=== PATIENT | male | born 1970 | race Two or more races ===

== ENCOUNTER 2016-11-07 07:30 | Observation (INO) | payer SELFPAY ==
[~2016-11-07] VITALS: Ht 175.3 cm; Wt 72.4 kg
[2016-11-07 07:31] VITALS: BP 160/103
[2016-11-07 07:52] LABS: HEMOGLOBIN 14.5 g/dL (14.1-18.0); LYMPH # 1.4 K/mm3 (0.7-4.5)
--- NOTE | 2016-11-07 08:42 | Emergency Room Report ---
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 N Clinical Suspician of Infection? N Mental Status: 1 - Regular (Normal Baseline) Sepsis Risk:Low Sepsis Risk Have you (or family members/close friends) recently traveled outside the [place]? N If Yes, where/when: Have you had exposure to infectious disease within the past month? N TB? Other? Specify: This is a spansih speaking patient who was interviewed by the nurse who was told that his chest hurt. I spoke to him through a computer processing scheduler on the emirati line that he has not been feeling well since yesterday. He was seen in the [facility] yesterday and was told he has anxiety and was given BP and anxiety medicine. 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 He woke today with an episode of palpitation that lasted for 10 minutes and felt weak. He denied chest pain to the computer processing scheduler, shortness of air, nasuea, vomiting or diarrhea, but he states that he can not belch. He took his medications this morning. 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 Yes Immunization Hx Ped.Immunizations UTD No DT/Tetanus Unknown Surgical Hx Previous Surgery?N denies any surgery Social History Smoking Hx Smoker: Unknown if Ever Smoked Tobacco: No Alcohol Alcohol: No Review of Systems All Other Systems Reviewed and Negative Constitutional see HPI, weakness Eyes no symptoms reported ENT no symptoms reported. Respiratory no symptoms reported Cardiovascular see HPI, chest pain, palpitations Gastrointestinal no symptoms reported Genitourinary no symptoms reported. Musculoskeletal no symptoms reported Skin no symptoms reported Psychiatric/Neurological no symptoms reported, anxiety Physical Exam Vital Signs Vital Signs Date Time Temp Pulse Resp B/P Pulse O2 O2 Flow FiO2 Ox Delivery Rate 11/07 0824 97.6 64 16 166/99 98 11/07 0731 97.6 64 16 160/103 98 - WBC >12,000 or <4,000 or 10% bands? 2 or more SIRS Criteria Met? B/P:166/99 MAP:122 Creatinine >2.0? UA output<0.5ml/kg/hr for 2 hrs? Platelet count >100,000? Lactate >2.0mmol/1? INR >1.2 or PTT > than 60 sec? Evidence of Organ Dysfunction? Provider documented clinical suspician of infection? N Sepsis Criteria Count: 0 Sepsis Risk: Low Sepsis Risk General Appearance normal appearance, WD/WN Eye Exam - bilateral eye normal exam, bilateral eye PERRL, bilateral eye EOMI Ear, Nose, Throat hearing grossly normal, normal ENT inspection Neck normal inspection, non-tender, supple, full range of motion Respiratory Status Yes: trachea midline, chest symmetrical, non tender chest. No: respiratory distress. Lung Sounds bilateral: normal breath sounds, lungs clear. Cardiovascular normal exam, regular rate/rhythm, no peripheral edema, no gallop, no JVD, no murmur, no rub, normal peripheral pulses Peripheral Pulses Pulses normal Yes Gastrointestinal normal bowel sounds, normal exam, non tender, soft, no organomegaly Back normal inspection, no CVA tenderness, no vertebral tenderness Extremities non-tender, normal range of motion, normal inspection Neurologic alert, infection control specialist II-XII nml as tested, normal exam, oriented x 3 Reflexes Reflexes normal Yes Skin intact, normal color, warm/dry Medical Decision Making LABS/Meds/Orders Pt receiving controlled substance in ED? No Results/Orders Laboratory Tests 11/07/16 0825: ABG pH 7.42, ABG pCO2 (Temp Corrct 35.1, ABG pO2 (Temp Correct 121.3 H, ABG HCO3 22.1, ABG Total CO2 23.1, ABG O2 Sat (Calculated) 98.5, ABG Base Excess - 2.5 L, Blood Gas Comments LEFT RADIAL 11/07/16 0737: B-Natriuretic Peptide 36, TSH 1.46 11/07/16 0737: Sodium 137, Potassium 3.1 L, Chloride 104, Carbon Dioxide 26, BUN 15, Creatinine 1.1, Estimated Creat Clear 90, Estimated GFR (MDRD) 71, Glucose 193 H, Calcium 8.1 L, Total Bilirubin 0.8, AST 11 L, ALT 19, Alkaline Phosphatase 81, Creatine Kinase 104, CK-MB (CK-2) Rel Index 1.3, CK and CKMB Interp 1.3, Troponin I 0.05, Total Protein 7.7, Albumin 3.9, Globulin 3.8 H, Albumin/ Globulin Ratio 1.0 L, WBC 5.6, RBC 5.13, Hgb 14.5, Hct 44.8, MCV 87.4, RDW 12.8 , Plt Count 220, MPV 9.1, Gran % 66.5, Gran # 3.7, Lymphocytes % 25.0, Monocytes % 5.3, Eosinophils % 2.9, Basophils % 0.3, Lymphocytes # 1.4, Monocytes # 0.3, Eosinophils # 0.2, Basophils # 0.0, PUBS MCHC 32.4, MCH 28.3 Current Medication Orders Sig/Mendez Start time Last Medication Dose Route Stop Time Status Admin Aspirin 324 MG ONCE ONE 11/07 0800 DC 11/07 PO 11/07 0801 0753 Aspirin 0 .STK-MED ONE 11/07 0748 DC .ROUTE Sodium Chloride 10 ML PRN PRN 11/07 0745 AC IV 11/08 0745 Sodium Chloride 1,000 ML .STK-MED ONE 11/07 0736 DC IV Orders Procedure Date/time Status Decision to admit 11/07 0855 Active ARTERIAL BLOOD GAS REQUEST 11/07 08 Active THYROID STIMULATING HORMONE 11/07 08 Complete BRAIN NATRIURETIC PEPTIDE 11/07 0812 Complete 12 LEAD EKG-PERRY (INITIAL) 11/07 0745 Active ELECTROCARDIOGRAM REQUEST 11/07 07 Active IV SALINE LOCK 11/07 07 Active CBC WITH AUTO DIFF 11/07 07 Complete CARDIAC ENZYMES 11/07 07 Complete CHEM 12 PROFILE 11/07 0745 Complete CM/EKG CM/EKG EKG rate, NSR, rhythm, no evid. of ischemic chgs, no ectopy, no acute findings XRAY/CT/US XRAY/CT/US XRAY chest XR interpretation by reviewed by me Xray Results abnormal, PVC and fluid in the fissure no acute findings. Departure Departure Time of Disposition 0839 Disposition Still a Patient Clinical Impression Primary Impression: Chest pain Secondary Impressions: Anxiety, Hypertension, Palpitation Condition STABLE Referrals Stefano Burch MD Additional Instructions I discussed with Dr Burch who agreed to admit for monitoring and more testing. I notified the patient and his friend through a soft perez translation and he was okay. Dr. Branch Discharge Counseling Counseled pt/family regarding diagnosis, test results ED Critical Care Critical Care No If Critical Care minutes are documented, the time involved in the performance of seperately reportable procedures was not counted toward critical care time documented. I directly delivered medical care to this critically ill and/or injured patient. Timely evaluation and treatment was necessary to address the significant organ system(s) dysfunction present in this patient. at 0827
--- NOTE | 2016-11-07 08:42 | Emergency Room Report ---
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 N Clinical Suspician of Infection? N Mental Status: 1 - Regular (Normal Baseline) Sepsis Risk:Low Sepsis Risk Have you (or family members/close friends) recently traveled outside the [place]? N If Yes, where/when: Have you had exposure to infectious disease within the past month? N TB? Other? Specify: This is a spansih speaking patient who was interviewed by the nurse who was told that his chest hurt. I spoke to him through a reports analysis manager on the polish line that he has not been feeling well since yesterday. He was seen in the [place] [facility] yesterday and was told he has anxiety and was given BP and anxiety medicine. 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 He woke today with an episode of palpitation that lasted for 10 minutes and felt weak. He denied chest pain to the reports analysis manager, shortness of air, nasuea, vomiting or diarrhea, but he states that he can not belch. He took his medications this morning. 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 Yes Immunization Hx Ped.Immunizations UTD No DT/Tetanus Unknown Surgical Hx Previous Surgery?N denies any surgery Social History Smoking Hx Smoker: Unknown if Ever Smoked Tobacco: No Alcohol Alcohol: No Review of Systems All Other Systems Reviewed and Negative Constitutional see HPI, weakness Eyes no symptoms reported ENT no symptoms reported. Respiratory no symptoms reported Cardiovascular see HPI, chest pain, palpitations Gastrointestinal no symptoms reported Genitourinary no symptoms reported. Musculoskeletal no symptoms reported Skin no symptoms reported Psychiatric/Neurological no symptoms reported, anxiety Physical Exam Vital Signs Vital Signs Date Time Temp Pulse Resp B/P Pulse O2 O2 Flow FiO2 Ox Delivery Rate 11/07 0824 97.6 64 16 166/99 98 11/07 0731 97.6 64 16 160/103 98 - WBC >12,000 or <4,000 or 10% bands? 2 or more SIRS Criteria Met? B/P:166/99 MAP:122 Creatinine >2.0? UA output<0.5ml/kg/hr for 2 hrs? Platelet count >100,000? Lactate >2.0mmol/1? INR >1.2 or PTT > than 60 sec? Evidence of Organ Dysfunction? Provider documented clinical suspician of infection? N Sepsis Criteria Count: 0 Sepsis Risk: Low Sepsis Risk General Appearance normal appearance, WD/WN Eye Exam - bilateral eye normal exam, bilateral eye PERRL, bilateral eye EOMI Ear, Nose, Throat hearing grossly normal, normal ENT inspection Neck normal inspection, non-tender, supple, full range of motion Respiratory Status Yes: trachea midline, chest symmetrical, non tender chest. No: respiratory distress. Lung Sounds bilateral: normal breath sounds, lungs clear. Cardiovascular normal exam, regular rate/rhythm, no peripheral edema, no gallop, no JVD, no murmur, no rub, normal peripheral pulses Peripheral Pulses Pulses normal Yes Gastrointestinal normal bowel sounds, normal exam, non tender, soft, no organomegaly Back normal inspection, no CVA tenderness, no vertebral tenderness Extremities non-tender, normal range of motion, normal inspection Neurologic alert, eclectic doctor II-XII nml as tested, normal exam, oriented x 3 Reflexes Reflexes normal Yes Skin intact, normal color, warm/dry Medical Decision Making LABS/Meds/Orders Pt receiving controlled substance in ED? No Results/Orders Laboratory Tests 11/07/16 0825: ABG pH 7.42, ABG pCO2 (Temp Corrct 35.1, ABG pO2 (Temp Correct 121.3 H, ABG HCO3 22.1, ABG Total CO2 23.1, ABG O2 Sat (Calculated) 98.5, ABG Base Excess - 2.5 L, Blood Gas Comments LEFT RADIAL 11/07/16 0737: B-Natriuretic Peptide 36, TSH 1.46 11/07/16 0737: Sodium 137, Potassium 3.1 L, Chloride 104, Carbon Dioxide 26, BUN 15, Creatinine 1.1, Estimated Creat Clear 90, Estimated GFR (MDRD) 71, Glucose 193 H, Calcium 8.1 L, Total Bilirubin 0.8, AST 11 L, ALT 19, Alkaline Phosphatase 81, Creatine Kinase 104, CK-MB (CK-2) Rel Index 1.3, CK and CKMB Interp 1.3, Troponin I 0.05, Total Protein 7.7, Albumin 3.9, Globulin 3.8 H, Albumin/ Globulin Ratio 1.0 L, WBC 5.6, RBC 5.13, Hgb 14.5, Hct 44.8, MCV 87.4, RDW 12.8 , Plt Count 220, MPV 9.1, Gran % 66.5, Gran # 3.7, Lymphocytes % 25.0, Monocytes % 5.3, Eosinophils % 2.9, Basophils % 0.3, Lymphocytes # 1.4, Monocytes # 0.3, Eosinophils # 0.2, Basophils # 0.0, PUBS MCHC 32.4, MCH 28.3 Current Medication Orders Sig/Mendez Start time Last Medication Dose Route Stop Time Status Admin Aspirin 324 MG ONCE ONE 11/07 0800 DC 11/07 PO 11/07 0801 0753 Aspirin 0 .STK-MED ONE 11/07 0748 DC .ROUTE Sodium Chloride 10 ML PRN PRN 11/07 0745 AC IV 11/08 0745 Sodium Chloride 1,000 ML .STK-MED ONE 11/07 0736 DC IV Orders Procedure Date/time Status Decision to admit 11/07 0855 Active ARTERIAL BLOOD GAS REQUEST 11/07 08 Active THYROID STIMULATING HORMONE 11/07 08 Complete BRAIN NATRIURETIC PEPTIDE 11/07 0812 Complete 12 LEAD EKG-PERRY (INITIAL) 11/07 0745 Active ELECTROCARDIOGRAM REQUEST 11/07 07 Active IV SALINE LOCK 11/07 07 Active CBC WITH AUTO DIFF 11/07 07 Complete CARDIAC ENZYMES 11/07 07 Complete CHEM 12 PROFILE 11/07 0745 Complete CM/EKG CM/EKG EKG rate, NSR, rhythm, no evid. of ischemic chgs, no ectopy, no acute findings XRAY/CT/US XRAY/CT/US XRAY chest XR interpretation by reviewed by me Xray Results abnormal, PVC and fluid in the fissure no acute findings. Departure Departure Time of Disposition 0839 Disposition Still a Patient Clinical Impression Primary Impression: Chest pain Secondary Impressions: Anxiety, Hypertension, Palpitation Condition STABLE Referrals Stefano Burch MD Additional Instructions I discussed with Dr Burch who agreed to admit for monitoring and more testing. I notified the patient and his friend through a soft perez translation and he was okay. Dr. Branch Discharge Counseling Counseled pt/family regarding diagnosis, test results ED Critical Care Critical Care No If Critical Care minutes are documented, the time involved in the performance of seperately reportable procedures was not counted toward critical care time documented. I directly delivered medical care to this critically ill and/or injured patient. Timely evaluation and treatment was necessary to address the significant organ system(s) dysfunction present in this patient. at 0889
[2016-11-07 08:53] LABS: ARTERIAL ABE -2.5 MMOL/L (-2.4-+2.3); ARTERIAL PO2 121.3 MMHG (80-100); ARTERIAL TCO2 23.1 MMOL/L (23-27)
[2016-11-07 08:54] LABS: OXYGEN ROOM AIR
--- NOTE | 2016-11-07 08:55 | RADIOLOGY REPORT PS360 ---
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 There is a 7 mm nodule in the right lower lobe laterally which is indeterminate. There are no previous studies available for comparison. There is a 7 mm partially calcified opacity in the left midlung laterally overlying the fourth rib anteriorly. No acute bony anomalies. No lobar consolidation. IMPRESSION: 1. 7 mm right lower lobe nodule. Follow-up recommended. 2. No acute finding
[2016-11-07] MEDS ORDERED: HYDRALAZINE10 M1 PO (09:48)
[2016-11-07] MEDS ORDERED: NIFEDIPINE XL 330 MG PO (09:49)
[2016-11-07] MEDS ORDERED: BUSPAR 10MG TAB10 MG PO (09:50)
[2016-11-07 10:47] VITALS: BP 141/63
[2016-11-07 10:50] VITALS: BP 141/63
--- NOTE | 2016-11-07 15:25 | HISTORY AND PHYSICAL REPORT ---
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 He apparently had abdominal pain and vomiting 2 days ago. Yesterday, his employer took him to the [facility] in [place] for further evaluation. He apparently has a history of hypertension but had not been on medication recently. At the clinic yesterday, he was diagnosed with hypertension and anxiety and started on hydralazine, nifedipine, and BuSpar. He awoke this morning and took his medication and had an episode of cardiac palpitations and came to the emergency room. In the emergency room he denied complaints of chest pain, shortness of breath, nausea, or vomiting. His was worked up in the emergency room and his initial cardiac enzymes were negative. The ER physician thought he might have some increased vascular congestion on his chest x-ray, however out radiologist has read the chest x-ray as normal except for a 7 mm right sided pulmonary nodule. Because of his risk factors, hypertension, and unclear history, the ER physician felt he should be admitted for observation, serial EKGs and enzymes. Past Medical History: Medical History: Angina: No NE: No Hypertension? Yes Hyperlipidemia? No CHF? No COPD? No Asthma? No Hernia? No CVA? No Seizures? No Diabetes? No UTI? No Stones? No GB Disease: No Nephritic Syndrome? No Asplenia? No Hepatitis? No Sickle Cell Disease? No Cataracts? No Glaucoma? No MRSA? No HIV? No TB? No Anxiety? Yes Cancer? No More? No Surgical history: Previous Surgery? No surgeries Medications: Reported Medications HYDRALAZINE HCL (Hydralazine) 10 MG PO TID NIFEDIPINE (Nifedipine ER) 60 MG PO DAILY Buspirone Hcl (Buspar 10MG) 5 MG PO TID Allergies: Coded Allergies: No Known Allergies (11/07/16) Family History: Family history: Negative for: CAD, HTN. Social History: Smoking Hx Tobacco: No Smoker: Never Smoker Type: N/A Packs/day: N/A Are you exposed to second hand No Alcohol: Alcohol: No Hx of Drug Use: Drug Use? No Review of Systems: Patient unresponsive? No Constitutional Positive for: malaise, weak. ENT No: nasal congestion, sinus problems, sore throat. Cardiovascular Positive for: palpitations. No: PND, chest pain, edema. Respiratory No: dyspnea on exertion, hemoptysis, pleurisy, productive cough (sputum). GI Positive for: abdominal pain (epigastric), nausea, vomitting. No: anorexia, constipation, diarrhea, dysphagia, hematemeis, hematochezia, melena. (male) No: frequency, hematuria, nocturia. Neurological No: change in LOC, confusion, headache, seizure, syncope. Immune/allergy No: hives, itching. Eyes No: blurry vision, diploplia, vision loss. Musculoskeletal No: extremity swelling, joint pain. Heme No: bleeding, bruising. Endocrine No: heat, polydipsia. Psychiatric Positive for: anxious. No: auditory hallucinations, confused, delusional, depression. Physical Exam: Vital signs: 1ST Vital Signs Result Date Time Pulse Ox 98 11/07 730 B/P 160/103 11/07 730 Temp 97.6 11/07 730 Pulse 64 11/07 07 Resp 16 11/07 730 O2 Delivery ROOM AIR 11/07 1047 Exam: General appearance: lying comfortably in bed, alert and in NAD Eyes: anicteric, conjunctiva clear ENT: mucous membranes moist, pharynx normal Neck: no carotid bruit, full range of motion, supple Cardiovascular: regular rate & rhythm, no murmur Respiratory: clear to auscultation ABD: non-distended, normal bowel sounds, no rebound, soft, no tenderness Extremities: no peripheral edema Musculoskeletal: equal muscle strength, motor intact Skin: dry, normal color, warm Neuro: alert, sfdc solution architect II-XII nml as tested, normal mood/affect Lab data: Labs: Laboratory Tests 11/07/16 1350: Troponin I 0.05 11/07/16 0825: ABG pH 7.42, ABG pCO2 (Temp Corrct 35.1, ABG pO2 (Temp Correct 121.3 H, ABG HCO3 22.1, ABG Total CO2 23.1, ABG O2 Sat (Calculated) 98.5, ABG Base Excess - 2.5 L, Blood Gas Comments LEFT RADIAL 11/07/16 0737: B-Natriuretic Peptide 36, TSH 1.46 11/07/16 0737: Sodium 137, Potassium 3.1 L, Chloride 104, Carbon Dioxide 26, BUN 15, Creatinine 1.1, Estimated Creat Clear 90, Estimated GFR (MDRD) 71, Glucose 193 H, Calcium 8.1 L, Total Bilirubin 0.8, AST 11 L, ALT 19, Alkaline Phosphatase 81, Creatine Kinase 104, CK-MB (CK-2) Rel Index 1.3, CK and CKMB Interp 1.3, Troponin I 0.05, Total Protein 7.7, Albumin 3.9, Globulin 3.8 H, Albumin/ Globulin Ratio 1.0 L, WBC 5.6, RBC 5.13, Hgb 14.5, Hct 44.8, MCV 87.4, RDW 12.8 , Plt Count 220, MPV 9.1, Gran % 66.5, Gran # 3.7, Lymphocytes % 25.0, Monocytes % 5.3, Eosinophils % 2.9, Basophils % 0.3, Lymphocytes # 1.4, Monocytes # 0.3, Eosinophils # 0.2, Basophils # 0.0, PUBS MCHC 32.4, MCH 28.3 Diagnosis(es): 1. Hypertension 2. Anxiety 3. Palpitation 4. Hypokalemia 5. Pulmonary nodule Plan: Because of his cardiac risk factors, he has been admitted for serial enzymes and close monitoring of his blood pressure. He has received oral replacement of his potassium. He will be continued on his maintenance medications from home. at [id number]
[2016-11-07 15:43] VITALS: BP 168/92
[2016-11-07 19:43] VITALS: BP 190/110
[2016-11-07 21:00] VITALS: BP 190/110
[2016-11-08 00:15] VITALS: BP 142/77
[2016-11-08 04:00] VITALS: BP 152/73
[2016-11-08 07:28] VITALS: BP 200/120
--- NOTE | 2016-11-08 07:36 | ACUTE CARE PROGRESS NOTE (QUA) ---
Progress Notes Subjective Date 11/08/16 Time 0815 Note BP elevated last evening. Had some belching and reflux. No c/o headache, chest pain or SOA Objective Findings Laboratory Tests 11/08/16 0545: Potassium 3.6, Creatine Kinase 60, CK-MB (CK-2) Rel Index 0.8, CK and CKMB Interp < 0.5, Troponin I 0.05 11/07/16 1803: Creatine Kinase 86, CK-MB (CK-2) Rel Index 0.8, CK and CKMB Interp 0.7, Troponin I 0.05 11/07/16 1350: Troponin I 0.05 Last VS-Temp:98.0 B/P:180/85 Pulse:78 Resp:20 SaO2:96 ROOM AIR Last weight lbs:159 oz:9 K.377 Method:Bed Scales Exam General appearance: alert, no acute distress Cardiovascular: regular rate & rhythm, no murmur Respiratory: clear to auscultation Extremities: no peripheral edema Assessment/Plan Problem List 1. Hypertension 2. Anxiety 3. Palpitation 4. Hypokalemia 5. Pulmonary nodule Patient condition Stable Plan: Will discharge home on additional BP medication and H2 lizzie. F/u in office in 4-5 days. This inpt stay is expected to cross 2 MNs from start of care Yes at 1312
[2016-11-08] MEDS ORDERED: FAMOTIDINE 20MG20 MG PO (08:20)
[2016-11-08] MEDS ORDERED: CLONIDINE0.1 MG PO (08:20)
--- NOTE | 2016-11-08 10:14 | PHARMACY CLINIC NOTE ---
Patient Demographics Patient Demographics Admission date: 11/07/16 Date: 11/08/16 Time: 1013 Allergies Coded Allergies: No Known Allergies (11/07/16) HEIGHT- FT: 5 IN: 9.00 K.377 VTE General Information Disclaimer The following section includes nursing documentation that has been pulled in for pharmacy review. Patient's VTE score: 2 Patient's VTE Risk: VERY LOW RISK Clinical trial participant? No VTE prophylaxis [id number] VTE prophylaxis ordered? Yes Type of prophylaxis/treatment: ANGELA at 1013
[2016-11-08 11:44] VITALS: BP 180/85
--- NOTE | 2016-11-09 14:38 | DISCHARGE SUMMARY STANDARD ---
Discharge Summary (FCA2) Date of admission: 11/07/16 Date of discharge: 11/08/16 Problem List: 1. Hypertension 2. Anxiety 3. Palpitation 4. Hypokalemia 5. 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 He apparently had abdominal pain and vomiting 2 days prior to admission. His employer took him to the [facility] in [place] for further evaluation. He apparently had a history of hypertension but had not been on medication. At the clinic he was diagnosed with hypertension and anxiety and started on hydralazine, nifedipine, and BuSpar. He awakened the morning of admission, took his medication, had an episode of cardiac palpitations, and came to the emergency room. In the emergency room he denied complaints of chest pain, shortness of breath, nausea, or vomiting. His was worked up in the emergency room and his initial cardiac enzymes were negative. The ER physician thought he might have some increased vascular congestion on his chest x-ray, however the radiologist read the chest x-ray as normal except for a 7 mm right sided pulmonary nodule. Because of his risk factors, hypertension, and unclear history, the ER physician felt he should be admitted for observation, serial EKGs and enzymes. Exam on admission: 1ST Vital Signs Result Date Time Pulse Ox 98 11/07 0731 B/P 160/103 11/07 0731 Temp 97.6 11/07 0731 Pulse 64 11/07 0731 Resp 16 11/07 0731 O2 Delivery ROOM AIR 11/07 1047 Exam: General appearance: lying comfortably in bed, alert and in NAD Eyes: anicteric, conjunctiva clear ENT: mucous membranes moist, pharynx normal Neck: no carotid bruit, full range of motion, supple Cardiovascular: regular rate & rhythm, no murmur Respiratory: clear to auscultation ABD: non-distended, normal bowel sounds, no rebound, soft, no tenderness Extremities: no peripheral edema Musculoskeletal: equal muscle strength, motor intact Skin: dry, normal color, warm 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 His BP did improve but still remained elevated. AM of 11/08/16 he denied CP, SOB and headache. He was discharged to home. Laboratory data this visit: 11/07/16 1350: Troponin I 0.05 11/07/16 0825: ABG pH 7.42, ABG pCO2 (Temp Corrct 35.1, ABG pO2 (Temp Correct 121.3 H, ABG HCO3 22.1, ABG Total CO2 23.1, ABG O2 Sat (Calculated) 98.5, ABG Base Excess - 2.5 L, Blood Gas Comments LEFT RADIAL 11/07/16 0737: B-Natriuretic Peptide 36, TSH 1.46 11/07/16 0737: Sodium 137, Potassium 3.1 L, Chloride 104, Carbon Dioxide 26, BUN 15, Creatinine 1.1, Estimated Creat Clear 90, Estimated GFR (MDRD) 71, Glucose 193 H, Calcium 8.1 L, Total Bilirubin 0.8, AST 11 L, ALT 19, Alkaline Phosphatase 81, Creatine Kinase 104, CK-MB (CK-2) Rel Index 1.3, CK and CKMB Interp 1.3, Troponin I 0.05, Total Protein 7.7, Albumin 3.9, Globulin 3.8 H, Albumin/ Globulin Ratio 1.0 L, WBC 5.6, RBC 5.13, Hgb 14.5, Hct 44.8, MCV 87.4, RDW 12.8 , Plt Count 220, MPV 9.1, Gran % 66.5, Gran # 3.7, Lymphocytes % 25.0, Monocytes % 5.3, Eosinophils % 2.9, Basophils % 0.3, Lymphocytes # 1.4, Monocytes # 0.3, Eosinophils # 0.2, Basophils # 0.0, PUBS MCHC 32.4, MCH 28.3 11/08/16 0545: Potassium 3.6, Creatine Kinase 60, CK-MB (CK-2) Rel Index 0.8, CK and CKMB Interp < 0.5, Troponin I 0.05 11/07/16 1803: Creatine Kinase 86, CK-MB (CK-2) Rel Index 0.8, CK and CKMB Interp 0.7, Troponin I 0.05 11/07/16 1350: Troponin I 0.05 Discharge medications: Continue taking these medications: HYDRALAZINE HCL (Hydralazine) 10 MG TABLET 10 MILLIGRAM ORAL THREE TIMES A DAY NIFEDIPINE (Nifedipine ER) 30 MG TABLET.ER 60 MILLIGRAM ORAL DAILY Buspirone Hcl (Buspar 10MG) 10 MG TABLET 5 MILLIGRAM ORAL THREE TIMES A DAY Start taking the following new medications: CLONIDINE HCL (Clonidine 0.1MG Tab) 0.1 MG TABLET 0.1 MILLIGRAM ORAL TWICE A DAY Qty = 60 Refills = 2 Famotidine (Famotidine 20MG) 20 MG TABLET 20 MILLIGRAM ORAL TWICE A DAY Qty = 60 Refills = 2 Disposition: Follow up: 4-[address] Kevin Burch Activity: Cont Current activity Diet: No Added Salt Discharge to: HOME Agency needed? N (Shadia Peralta APRN) Problem List: 1. Hypertension 2. Anxiety 3. Palpitation 4. Hypokalemia 5. Pulmonary nodule (Marcin GUARDADO,Stefano Brown) at 2007
== END 2016-11-08 10:15 | disposition home or self-care (01) ==
LOC: ER 07:30 → 2ND 09:06 → ER 09:06 → 2ND 09:31
PROVIDERS: Emergency Medicine
DX: I10 Essential (primary) hypertension (principal); F41.9 Anxiety disorder, unspecified; R00.2 Palpitations; E87.6 Hypokalemia; R91.1 Solitary pulmonary nodule; Z79.899 Other long term (current) drug therapy
CPT/HCPCS: G0378